=== PATIENT | female | born 1960 | race Hispanic/Latino ===

== ENCOUNTER → 2021-04-25 | Day surgery (SDC) | payer OTHER ==
[~2021-04-25] MED LIST: ASPIRIN81 MG PO; GLIMEPIRIDE2 MG PO; LIDOCAINE HCL 2% LOCAL INJ 5 ML SDV VIAL INJ ONE; METFORMIN HCL500 MG PO; METOCLOPRAMIDE HCL 10 MG/2ML VIAL ONE; ONDANSETRON HCL INJ 2MG/ML 2ML 2 MG/ML VIAL ONE; POVIDONE IODINE 0.05% 0.05 % ML PO ONE; PROPOFOL IV EMULSION 10 MG/ML 20 ML VIAL ONE
[2021-04-25 13:40] VITALS: BP 136/65
== END | disposition home or self-care (01) ==
LOC: OR 09:25
PROVIDERS: ATTEND Internal Medicine Gastroenterology
DX: Z12.11 Encounter for screening for malignant neoplasm of colon (principal); D12.5 Benign neoplasm of sigmoid colon; K64.8 Other hemorrhoids; R73.03 Prediabetes; Z01.810 Encounter for preprocedural cardiovascular examination; Z01.812 Encounter for preprocedural laboratory examination; Z20.822 Contact with and (suspected) exposure to COVID-19; Z79.82 Long term (current) use of aspirin; Z79.84 Long term (current) use of oral hypoglycemic drugs; Z68.26 Body mass index [BMI] 26.0-26.9, adult
CPT/HCPCS: 36415; 45384; 45385; 82948; 93005; J2001; J2405; J2704; J2765; U0002; 45378